=== PATIENT | male | born 1940 | race Caucasian/White ===

== ENCOUNTER → 2019-02-10 10:45 | Outpatient (CLI) | payer MEDICARE, OTHER, SELFPAY ==
--- NOTE | 2019-02-10 10:50 | AAAS_ITS ---
Reason For Study: AAA screening Aorta Measurements Aorta Doppler Measurements Proximal aorta measures1.7 x 1.6cm. in cross- Peak systolic flow velocities within the proximal sectional axis. aorta measure 93.0 cm/sec. Proximal aorta measures1.6cm. in longitudinal Peak systolic flow velocities within the mid aorta axis. measure 91.1 cm/sec. Mid aorta measures1.7 x 1.6cm. in cross-sectional Peak systolic flow velocities within the distal axis. aorta measure 74.7 cm/sec. Mid aorta measures1.5cm. in longitudinal axis. Distal aorta measures1.5 x 1.4cm. in cross- sectional axis. Distal aorta measures1.5cm. in longitudinal axis. Left Iliac Artery Left iliac artery measures .98 cm. in the longitudinal axis. Left iliac artery measures .93 x .97 cm. in the cross-sectional axis. Peak systolic velocity in the left iliac artery measures 107.6 cm/sec. Right Iliac Artery Right iliac artery measures .98 cm. in the longitudinal axis. Right iliac artery measures .86 x .85 cm. in the cross-sectional axis. Peak systolic velocity in the right iliac artery measures 184.2 cm/sec. Procedure Aorta IVC Iliac vasculature or bypass grafts [id number]. Exam performed in department. Interpretation Summary The dimensions of the intra-abdominal aorta is normal, without evidence of aneurysmal dilatation. The iliac arteries are also normal in size bilaterally. The intra-abdominal aorta and iliac arteries are patent, demonstrating normal, pulsatile arterial flow and normal peak systolic velocities. Ordering Physician: Cal Cote Referring Physician: Cal Cote BATH MIX OPERATOR-C Performed By: Rere Tripp RVT
== END ==
PROVIDERS: Referring Provider Nurse Practitioner Family; Visit Provider Nurse Practitioner Family
DX: Z13.6 Encounter for screening for cardiovascular disorders (principal)
CPT/HCPCS: 76706

== ENCOUNTER → 2019-02-21 10:39 | Outpatient (CLI) | payer MEDICARE, OTHER, SELFPAY ==
--- NOTE | 2019-02-21 10:47 | RAD_ITS ---
STUDY: X-RAY - ABDOMEN/PELVIS REASON FOR EXAM: Male, 78 years old. Abdominal pain, fullness TECHNIQUE: AP supine and upright views of the abdomen and pelvis. COMPARISON: None. FINDINGS: Normal visualized lung bases. There is an unremarkable bowel gas pattern. There is no demonstrated free abdominal air. The visualized liver, spleen and kidneys are grossly normal in size and morphology. There are vascular calcifications within the pelvis. There are diffuse degenerative changes of the visualized lumbar spine. RAD/Abd Inc Decub and/or Erect IMPRESSION: No acute findings Electronically Signed: Sameer Parker MD at 11:18 EDT , Service support ,
== END ==
PROVIDERS: Referring Provider Nurse Practitioner Family; Visit Provider Nurse Practitioner Family
DX: R10.84 Generalized abdominal pain (principal)
CPT/HCPCS: 74019

== ENCOUNTER 2021-11-15 05:24 | Day surgery (SDC) | payer MEDICARE, OTHER, SELFPAY ==
--- NOTE | 2021-11-15 05:42 | HP.PCM_ITS ---
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 Is patient in pain?: No Allergies tetanus and diphtheria toxoids Allergy (Mild, Verified 11/04/21 08:54) Other Medications aspirin 81 mg tablet,delayed release 81 mg PO DAILY 11/04/21 [History Confirmed 11/04/21] clopidogrel 75 mg tablet 75 mg PO DAILY 11/04/21 [History Confirmed 11/04/21] cod liver oil 1 cap PO DAILY 11/04/21 [History Confirmed 11/04/21] flaxseed oil 1,000 mg capsule 1,000 mg PO DAILY 11/04/21 [History Confirmed 11/04/21] isosorbide mononitrate 30 mg tablet,extended release 24 hr tablet PO 11/04/21 [History Confirmed 11/04/21] meloxicam 15 mg tablet tablet PO 11/04/21 [History Confirmed 11/04/21] metoprolol tartrate 50 mg-hydrochlorothiazide 25 mg tablet tablet PO 11/04/21 [History Confirmed 11/04/21] omeprazole 40 mg capsule,delayed release cap PO 11/04/21 [History Confirmed 11/04/21] simvastatin 40 mg tablet tablet PO 11/04/21 [History Confirmed 11/04/21] turmeric 400 mg capsule mg PO 11/04/21 [History Confirmed 11/04/21] PFSH Medical History GERD (gastroesophageal reflux disease) Heart disease HTN (hypertension) Surgical History S/P cataract extraction 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 The patient is being referred by Cal Cote CNP and a written copy of my surgical consult recommendations will be returned.. The patient had Covid-19 last year. Now he complains of a mucus type phlegm that keeps recurring. He claims he is, chronic loss of taste. He feels like there is something there the back of his throat. He claims that sometimes he has some nonspecific epigastric bloating. He has cardiac disease and is on clopidogrel. He has had bilateral knee replacement procedures and has still some difficulty moving around. He has not had any testing of this phenomena globus sensation. He claims that 5 years ago he had some abdominal bloating that seemingly resolved after couple weeks. This current phlegm-like sensation is not resolving Getting a consistent understandable history though is somewhat challenging ROS General General: No weight change, appetite, fatigue, colon cancer, breast cancer or weakness HEENT HEENT: Yes difficulty swallowing, eye injury and eye surgery; No swollen glands or hoarseness Endo Endocrine: No thyroid disease, diabetes mellitus, thyroid cancer, Hair loss, he at intolerance or cold intolerance Skin Skin: No rash or changing moles Breast Breast: No left breast lump, right breast lump, nipple discharge, breast pain, abnormal mammogram, abnormal US or breast enlargement Musc Musculoskeletal: Yes back problems and arthritis; No rheumatoid arthritis, gout or joint pain Cardio Cardiovascular: Yes heart disease and heart attack; No murmur, pacemaker, atrial fibrillation, high blood pressure, heart stent, palpitations, shortness of breat with exertion or chest pain Psych Psychiatric: No depression, anxiety or hearing voices Resp Respiratory: No shortness of breath, No sleep apnea, Yes cough, No COPD, No asthma, No emphysema and No wheezing Gastro Gastrointestinal: No abdominal pain, No nausea or vomiting, No diarrhea, No constipation, No blood in stool, Yes acid reflux, No hemorrhoids, No ulcers, No gallbladder problem and No black,tarry stools Gustavo Hematologic: Yes blood thinners, No blood disorders, No bleeding, No anemia and No blood clots Neuro Neurologic: No system reviewed and no additional complaints, except as documented, No as per HPI, No abnormal gait, No abnormal hearing, No abnormal movements, No abnormal speech, No behavioral changes, No burning sensations, No confusion, No convulsions, No disequilibrium, No dizziness, No localized weakness, No frequent falls, No headache(s), No lack of coordination, No loss of vision, No memory loss, No numbness, No other visual disturbances, No radicular pain, No restless legs, No sensory deficit, No syncope, No tingling, No tremor(s), No weakness and No other Exam Const General: cooperative and comfortable HENMT Head: normal to inspection Other: Neck is supple, nontender, I do not detect any thyroid enlargement, no cervical adenopathy, carotids are 3+ no bruits Eyes General: appearance normal, both eyes and all related structures Chest Chest palpation & inspection: normal inspection of the chest Resp Effort & Inspection: normal respiratory effort Auscultation: clear to auscultation bilaterally Cardio Rate: regular rate Rhythm: regular rhythm GI Palpation: soft and no hepatosplenomegaly Musc Other: Neck is somewhat stiff lack of mobility Neuro General: patient alert, patient awake and patient oriented x3 Assessment and Plan Assessment and Plan (1) Globus sensation: Status: Acute Plan - Dr. Nickolas Holden MD: I recommended the patient a esophagogastroduodenoscopy with possible biopsy. Careful inspection for possible reflux or H. pylori or eosinophilic esophagitis will be pursued. The patient will be able to remain on his medication. This will include his clopidogrel. I will utilize monitored anesthesia care. I have instructed the patient that I might be able to detect gastroesophageal reflux disease is etiologic to his symptoms. If absolutely no findings then he might need to follow-up with ear nose and throat. Clinically I am not detecting any thyroid problem and that would not typically correlate with mucous. He has had an opportunity to ask the questions answered. He would like to schedule and proceed as noted. I appreciate the opportunity of assisting with the surgical care. Copy: Dr. Rafa Yoo and Cal Cote, SHAUNA Holden M.D., F.A.C.S. I have re-examined the patient. There are no clinical changes since date of exam.
[2021-11-15 05:47] VITALS: BP 169/72; PULSE 62; RESP 18; TEMP 36.9; O2SAT 100; BMI 27.8
[2021-11-15] MEDS: Lactated Ringers 1,000 ML 15 ML IV (05:57)
--- NOTE | 2021-11-15 06:30 | EGD_PTH ---
PATIENT: YADIRA DURBIN LOC: EN U#:[id number] AGE/SX: 81/M ROOM: RE11/15/[address]: Dr. Nickolas Holden MD : 1940 BED: DIS: 11/15/2021 SPEC #: [id number] RECD: 11/15/21 11:14 STATUS: VAL MADRID #: [id number] POPEYE: 11/15/21 06:[address]: Nickolas Holden DEPT: SURGICAL PATHOLOGY RECD BY: Carolina Bennett ENTERED: 11/15/21 12:46 SP TYPE: EGD BIOPSY OT DR: Dr. Rafa Yoo MD Tissues: A - Gastric mucous membrane B - Stomach, NOS C - Esophagus, NOS D - Esophagus, NOS Procedures: Special Stain Group II Surgery Specimen Level IV Alcian Blue/PAS (control) HEADER OPERATION[place] [place] DIAGNOSIS: Globus sensation TISSUE SUBMITTED: A ? Antrum biopsy for histo and H. pylori, B ? Greater curvature polyp biopsy, C ? Distal esophagus biopsy, D ? Mid esophagus biopsy MICROSCOPIC DIAGNOSIS A. Antrum, biopsy: Mild gastritis. See microscopic description and comment. B. Greater curvature polyp, biopsy: Fundic gland polyp. C. Distal esophagus, biopsy: Fragments of gastroesophageal mucosa with mild chronic inflammation. Intestinal metaplasia (goblet cell metaplasia) not identified. See comment. D. Mid esophagus, biopsy: A fragment of squamous epithelium, no pathologic diagnosis. SJ:amanuel 11/16/2021 COMMENT A. The results of immunohistochemistry for Helicobacter pylori will be reported separately ([id number]). C. Alcian blue/PAS stain with matched control is used in the evaluation of the specimen. MICROSCOPIC DESCRIPTION Slides are reviewed. A. The specimen shows fragments of gastric mucosa with chronic inflammatory cell infiltrates in the lamina propria consisting of lymphocytes and plasma cells, consistent with mild chronic gastritis. Focal mucosal congestion and hemorrhage are also noted. GROSS DESCRIPTION A - Received in fixative is one container labeled with the patient's name and designated antrum biopsy. The specimen consists of one irregular fragment of light daigle soft tissue that measures 0.3 x 0.3 x 0.1 cm. The specimen is totally submitted in one cassette. B - Received in fixative is one container labeled with the patient's name and designated greater curvature polyp. The specimen consists of one irregular fragment of light daigle soft tissue that measures 0.3 x .3 x 0.1 cm. The specimen is totally submitted in one cassette. C - Received in fixative is one container labeled with the patient's name and designated distal esophagus biopsy. The specimen consists of multiple irregular fragments of light daigle soft tissue that in aggregate measure 1 x 0.5 x 0.1 cm. The specimen is totally submitted in one cassette. D - Received in fixative is one container labeled with the patient's name and designated mid esophagus biopsy. The specimen consists of one irregular fragment of light daigle soft tissue that measures 0.4 x 0.2 x 0.1 cm. The specimen is totally submitted in one cassette. / SJ:rg 11/15/2021 TC:3 CPT: 03980 x4, 73843
--- NOTE | 2021-11-15 06:30 | IMM_PTH ---
PATIENT: YADIRA DURBIN LOC: EN U#:[id number] AGE/SX: 81/M ROOM: RE11/15/[address]: Dr. Nickolas Holden MD : 1940 BED: DIS: 11/15/2021 SPEC #: [id number] RECD: 11/15/21 12:55 STATUS: VAL REQ #: [id number] POPEYE: 11/15/21 06:[address]: Nickolas Holden DEPT: IMMUNOHISTOCHEMISTRY RECD BY: Rose Mary Camara ENTERED: 11/15/21 12:56 SP TYPE: IMMUNO OTHR DR: Dr. Rafa Yoo MD Tissues: A - Stomach, NOS Procedures: H Pylori (initial) PHYSICIAN & INSTITUTION [place] [address] SPECIMEN INFORMATION: Tissue Source: A ? Antrum biopsy Clinical Info: Globus sensation Specimen Number: [id number] CPT code: 47640 METHODOLOGY: Deparaffinized sections of prefer/formalin-fixed tissue or PAP/DQ stained slides are incubated with monoclonal/polyclonal antibodies/oligonucleotide probes. Localization is made via biotin free immunoperoxidase method. Appropriate controls are performed and reacted as expected. Results on target cell population are indicated in the following table: RESULTS: ANTIBODY / CLONE RESULT Block A H Pylori (polyclonal) negative These tests were developed and their performance characteristics determined by [facility]. They may not have been cleared or approved by the U.S. Food and Drug Administration. The FDA has determined that such clearance or approval is not necessary. INTERPRETATION: A. Antrum biopsy: Negative for Helicobacter pylori organisms. SJ:amanuel 11/16/2021
[2021-11-15 06:45] VITALS: BP 118/56; BP 169/72; PULSE 54; RESP 18; TEMP 36.5; O2SAT 94
[2021-11-15 06:50] VITALS: BP 119/68; BP 169/72; PULSE 54; RESP 18; O2SAT 93
--- NOTE | 2021-11-15 06:50 | OP.EGD_ITS ---
Patient Name: Markos Miller Procedure Date: 11/15/2021 6:15 AM Date of : 1940 Age: 81 Procedure: Upper GI endoscopy Indications: Globus sensation Providers: Nickolas Holden MD Medicines: See the Anesthesia note for documentation of the administered medications Complications: No immediate complications. Procedure: Pre-Anesthesia Assessment: - Prior to the procedure, a History and Physical was performed, and patient medications and allergies were reviewed. The patient's tolerance of previous anesthesia was also reviewed. The risks and benefits of the procedure and the sedation options and risks were discussed with the patient. All questions were answered, and informed consent was obtained. Prior Anticoagulants: The patient has taken no previous anticoagulant or antiplatelet agents. ASA Grade Assessment: II - A patient with mild systemic disease. After reviewing the risks and benefits, the patient was deemed in satisfactory condition to undergo the procedure. After obtaining informed consent, the endoscope was passed under direct vision. Throughout the procedure, the patient's blood pressure, pulse, and oxygen saturations were monitored continuously. The Endoscope was introduced through the mouth, and advanced to the second part of duodenum. The upper GI endoscopy was accomplished without difficulty. The patient tolerated the procedure well. Scope In: 6:34:11 AM Scope Out: 6:41:04 AM Total Procedure Duration Time 0 hours 6 minutes 53 seconds Findings: Esophagitis with no bleeding was found 40 cm from the incisors. Biopsies were taken with a cold forceps for histology. A 1 cm hiatal hernia was present. The middle third of the esophagus was normal. Biopsies were taken with a cold forceps for histology. Localized moderate inflammation characterized by erythema was found in the gastric antrum. Biopsies were taken with a cold forceps for histology. Multiple sessile polyps with no bleeding and no stigmata of recent bleeding were found on the greater curvature of the stomach. The polyp was removed with a cold biopsy forceps. Resection and retrieval were complete. The examined duodenum was normal. Impression: - Reflux esophagitis. Biopsied. - 1 cm hiatal hernia. - Normal middle third of esophagus. Biopsied. - Acute gastritis. Biopsied. - Multiple gastric polyps. Resected and retrieved. - Normal examined duodenum. Recommendation: - Await pathology results. - Use sucralfate tablets 1 gram PO QID. Please contact my office in 1-2 weeks with progress report regarding Globus sensation Consider thyroid Ultrasound if symptoms persist - Continue present medications. Procedure Code(s): --- Professional --- 17565, Esophagogastroduodenoscopy, flexible, transoral; with biopsy, single or multiple Diagnosis Code(s): --- Professional --- K21.0, Gastro-esophageal reflux disease with esophagitis K44.9, Diaphragmatic hernia without obstruction or gangrene K29.00, Acute gastritis without bleeding K31.7, Polyp of stomach and duodenum F45.8, Other somatoform disorders CPT copyright 2017 [employer]. All rights reserved. The codes documented in this report are preliminary and upon clinical education coordinator review may be revised to meet current compliance requirements. Nickolas Holden MD 11/15/2021 6:49:31 AM This report has been signed electronically. Number of Addenda: 0 Note Initiated On: 11/15/2021 6:15 AM
--- NOTE | 2021-11-15 06:50 | OP.CCLET_ITS ---
11/15/2021 Rafa Yoo Re : Upper GI endoscopy procedure for Markos Miller Dear Fredo This procedure was performed on Monday, November 15, 2021. My impressions and recommendations are as follows: Impressions : - Reflux esophagitis. Biopsied. - 1 cm hiatal hernia. - Normal middle third of esophagus. Biopsied. - Acute gastritis. Biopsied. - Multiple gastric polyps. Resected and retrieved. - Normal examined duodenum. Recommendations : - Await pathology results. - Use sucralfate tablets 1 gram PO QID. Please contact my office in 1-2 weeks with progress report regarding Globus sensation Consider thyroid Ultrasound if symptoms persist - Continue present medications. My findings are described in the full procedure note, which is enclosed. If I can be of further assistance, please feel free to contact me at Doctor phone number(s): Work: . Sincerely, Nickolas Holden MD 11/15/2021 6:49:31 AM This report has been signed electronically.
[2021-11-15 06:55] VITALS: BP 120/70; BP 169/72; PULSE 58; RESP 18; O2SAT 95
[2021-11-15 07:00] VITALS: BP 126/68; BP 169/72; PULSE 65; RESP 18; TEMP 36.9; O2SAT 95
[2021-11-15 07:07] VITALS: BP 169/72
== END 2021-11-15 23:59 | disposition home or self-care (01) ==
LOC: EN 05:25 → AC 05:26
PROVIDERS: PCP Family Medicine; Referring Provider Family Medicine; Visit Provider Surgery
PROC: 0DJ08ZZ Inspection of Upper Intestinal Tract, Via Natural or Artificial Opening Endoscopic (ICD-10-PCS; CPT 43235; principal; 2021-11-15 06:25)
DX: K29.70 Gastritis, unspecified, without bleeding (principal); K44.9 Diaphragmatic hernia without obstruction or gangrene; I10 Essential (primary) hypertension; K31.7 Polyp of stomach and duodenum; Z87.891 Personal history of nicotine dependence; K21.00 Gastro-esophageal reflux disease with esophagitis, without bleeding; Z79.899 Other long term (current) drug therapy; Z79.82 Long term (current) use of aspirin; M19.90 Unspecified osteoarthritis, unspecified site; Z86.718 Personal history of other venous thrombosis and embolism; E78.00 Pure hypercholesterolemia, unspecified; Z79.02 Long term (current) use of antithrombotics/antiplatelets; Z95.1 Presence of aortocoronary bypass graft
CPT/HCPCS: 43239; 88305; 88313; 88342; J7120; J2405

== ENCOUNTER → 2022-12-11 | Outpatient (CLI) | payer MEDICARE, OTHER, SELFPAY ==
--- NOTE | 2022-12-11 16:51 | NEURO_ITS ---
NCS and/or EMG Patient Report Ordering Doctor: Jah Rousseau DATE OF SERVICE: 12/11/22 Indication: Bilateral hand pain, numbness and tingling (right greater than left). Evaluate for entrapment neuropathy. Findings: Nerve conduction studies were performed in the right and left upper extremities. The right median motor study recording the abductor pollicis brevis showed a normal amplitude, prolonged distal latency and slowed conduction velocity. The right ulnar motor study recording the abductor digiti minimi showed a normal amplitude, normal distal latency and normal conduction velocity. No conduction block or focal slowing was present across the elbow. The right median sensory response was absent. The right ulnar sensory response recording digit five showed a normal amplitude, latency and conduction velocity. The right radial sensory response recording over the extensor snuff box showed a normal amplitude, latency and conduction velocity. The left median motor study recording the abductor pollicis brevis showed a normal amplitude, markedly prolonged distal latency and slowed conduction juani ocity. The left ulnar motor study recording the abductor digiti minimi showed a normal amplitude, normal distal latency and normal conduction velocity. No conduction block or focal slowing was present across the elbow. The left median sensory response recording digit two was absent. The left ulnar sensory response recording digit five showed a normal amplitude, latency and conduction velocity. The left radial sensory response recording over the extensor snuff box showed a normal amplitude, latency and conduction velocity. Right median-ulnar lumbrical / interosseous motor latencies showed a prolonged median latency compared to the ulnar. Left median-ulnar lumbrical / interosseous motor latencies showed a prolonged median latency compared to the ulnar. Needle EMG was omitted due to the lack of radicular symptoms and the confirmatory nature of the nerve conduction studies. Impression: This is a markedly abnormal study. 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 The pathophysiology is severe demyelination though there is evidence of significant secondary sensory axon loss. These findings are compatible with the clinical diagnosis of carpal tunnel syndrome. Blair Garcia D.O. Multi Select Codes Neurology Neurology Interp Codes: 01377-25 [facility] test studies (interp)
== END | disposition home or self-care (01) ==
LOC: PSN 15:08
PROVIDERS: PCP Family Medicine; Referring Provider Student in an Organized Health Care Education/Training Program; Visit Provider Student in an Organized Health Care Education/Training Program
DX: M81.0 Age-related osteoporosis without current pathological fracture (principal); R20.2 Paresthesia of skin; G56.03 Carpal tunnel syndrome, bilateral upper limbs
CPT/HCPCS: 95913

== ENCOUNTER 2024-05-18 10:37 | Emergency (ER) | payer MEDICARE, OTHER, SELFPAY ==
[2024-05-18 10:38] VITALS: BP 163/87; PULSE 61; PULSE 64; RESP 16; TEMP 36.5; O2SAT 96; O2SAT 97
[2024-05-18 10:43] VITALS: BMI 26.4
[2024-05-18 10:44] VITALS: TEMP 36.5
--- NOTE | 2024-05-18 11:12 | CT_ITS ---
STUDY: CT FACIAL BONES WITHOUT CONTRAST REASON FOR EXAM: Male, 83 years old. Facial trauma RADIATION DOSAGE (If Supplied By Facility): CTDIvol = ( 29.38 ) mGy, DLP = ( 562.15 ) mGycm TECHNIQUE: The patient was scanned in a multi detector CT scanner. Sagittal and coronal images were reconstructed. Individualized dose optimization techniques were used for this CT. COMPARISON: None. FINDINGS: There is frontal soft tissue swelling. 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 There are multiple fractures. There are fractures of the anterior and posterior leonard of the frontal sinus. There are fractures of the nasal bone . There are fractures of the anterior and posterior leonard of the bilateral maxillary sinuses. There are fractures of the bilateral pterygoid processes. There is fracture of the left zygoma . There are fractures of the lateral wall of the bilateral orbits . Normal mandible. Mucosal thickening and fluid in the frontal, maxillary, and ethmoid visualized paranasal sinuses. CT/Sinus/Facial Bone IMPRESSION: LeFort type III fractures. Fractures involving the anterior and posterior leonard of the frontal sinus. Electronically Signed: Pal Cronin MD at 12:29 EDT ,
--- NOTE | 2024-05-18 11:12 | CT_ITS ---
STUDY: CT BRAIN WITHOUT CONTRAST REASON FOR EXAM: Male, 83 years old. Trauma RADIATION DOSAGE (If Supplied By Facility): CTDIvol = ( 44.99 ) mGy, DLP = ( 779.24 ) mGycm TECHNIQUE: Transaxial CT imaging of the brain was performed without administration of intravenous contrast material. Individualized dose optimization techniques were used for this CT. COMPARISON: No relevant priors. FINDINGS: There is frontal and facial soft tissue swelling. There are fractures of the facial bones including the anterior and posterior leonard of the frontal sinus. Normal calvarium. There is mild cerebral atrophy with widening of the extra-axial spaces and ventricular dilatation. There are areas of decreased attenuation within the white matter tracts of the supratentorial brain, consistent with microvascular disease changes. Normal basal ganglia and thalami. Normal brainstem. Normal cerebellum. There is no intracranial hemorrhage. There are no findings of an acute ischemic infarction. There is mucosal thickening and fluid in the visualized paranasal sinuses. CT/Brain/Head without Contrast IMPRESSION: Chronic involutional changes of the brain. Facial fractures including involving the anterior and posterior leonard of the frontal sinus. No intracranial hemorrhage seen. Electronically Signed: Pal Cronin MD at 12:34 EDT ,
--- NOTE | 2024-05-18 11:13 | EDS_ITS ---
HPI HPI - Fall History of Present Illness Chief Complaint: Fall Informant: patient, spouse/S.O. and family Occured/Mechanism Occurred: Today Mechanism/Context: Yes same level fall and Yes trip Usually ambulates: Without assistance Pain/Injury Pain Location: head and face Current Severity: Moderate Maximum Severity: Moderate Associated Symptoms Associated Symptoms: Negative for Parasthesias, Weakness, Loss of function, Inability to ambulate, Loss of consciousness or Amnesia Narrative Narrative: 83-year-old male history of DVT, hypertension and cardiac disease with prior bypass years ago. He is on both aspirin and Plavix. Was at a neighbor's house and he was stepping around a lakshmi when he caught his foot on tripped and fell landing on the driveway primarily on his face. Injuring his nose and causing a bilateral nosebleed. He also has abrasions on both knees. Does not believe he was knocked out. He does have a headache. Prior similar symptoms: No Recent Illness/Hospitalization: No PFSH PFS Medical History Wears hearing aid Wears glasses Alcohol use Arthritis DVT (deep venous thrombosis) High cholesterol Easy bruising Former smoker Shortness of breath on exertion History of stress test Cardiology follow-up encounter GERD (gastroesophageal reflux disease) HTN (hypertension) Heart disease Home Medications ?Medication ?Instructions ?Recorded ?Last Taken ?Type aspirin 81 mg tablet,delayed 81 mg PO DAILY 11/04/21 Unknown History release clopidogrel 75 mg tablet (Plavix) 75 mg PO DAILY 11/04/21 Unknown History cod liver oil 1 cap PO DAILY 11/04/21 Unknown History flaxseed oil 1,000 mg capsule 1,000 mg PO DAILY 11/04/21 Unknown History isosorbide mononitrate 30 mg 30 mg PO DAILY 11/04/21 Unknown History tablet,extended release 24 hr meloxicam 15 mg tablet 15 mg PO DAILY 11/04/21 Unknown History metoprolol tartrate 50 1 tablet PO DAILY 11/04/21 Unknown History mg-hydrochlorothiazide 25 mg tablet omeprazole 40 mg capsule,delayed 40 mg PO DAILY 11/04/21 Unknown History release simvastatin 40 mg tablet 40 mg PO DAILY 11/04/21 Unknown History turmeric 400 mg capsule 400 mg PO DAILY 11/04/21 Unknown History sucralfate 1 gram tablet (Carafate) 1 g PO Q6H #120 tabs 11/15/21 Unknown Rx amoxicillin 500 mg capsule 500 mg PO BID 7 days #14 caps 05/18/24 Unknown Rx ondansetron 4 mg disintegrating 4 mg PO Q6H PRN nausea and 05/18/24 Unknown Rx tablet vomiting #10 tabs Allergy/AdvReac Type Severity Reaction Status Date / Time tetanus and diphtheria Allergy Mild Other Verified 05/18/24 10:48 toxoids Family History Father Heart disease Surgical History History of cardiac catheterization History of quadruple bypass S/P cataract extraction Status post right knee replacement Status post left knee replacement Social History Smoking Status: Former smoker alcohol intake: current alcohol intake frequency: 0-2 drinks per day ROS ROS ED ROS Narrative Denies recent illness. Review of Systems ROS Unobtainable: Denies due to encephalopathy Constitutional Constitutional ED: Denies chills or fever(s) Eyes Eyes: Denies blurry vision ENT ENT ED: Denies ear pain Cardiovascular Cardiovascular: Denies chest pain Respiratory/Chest Respiratory/Chest: Denies cough or dyspnea Gastrointestinal Gastrointestinal: Denies abdominal pain Genitourinary Genitourinary ED: Denies dysuria or hematuria Musculoskeletal Musculoskeletal: Denies arthralgias Integumentary Denies abscess Neurologic Neurologic: Denies headache(s) Psychiatric Psychiatric: Denies anxiety or depression Endocrine Endocrinology: Denies polydipsia Hematologic/Lymphatic Hematologic/Lymphatic: Denies easy bruising or lymphadenopathy Allergic/Immunologic Allergic/Immunologic ED: Denies mouth swelling, tongue swelling or urticaria EXAM Physical Exam Narrative Exam Narrative: 83-year-old male vital signs stable afebrile. H EENT exam pupils round reactive light. Extra motions are intact. He has a contusion to his nose. Bleeding from both naris and clot. He is Bruising along his right eye and medial orbit area. Extraocular motions are intact. Dentition is intact. No dental injury or jaw injury. He is able to open close his mouth and difficulty. Scalp is nontender without laceration or contusion. C-spine nontender. Trachea midline. Lungs clear to auscultation bilaterally. Heart regular rhythm rate about 65 no murmur. Chest wall and ribs nontender. Abdomen soft nontender. Pelvic girdle intact. Moving all 4 extremities. Nontender no deformity. Normal range of motion. 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 Dorsi plantarflexion intact. Flexiseq to both knees and hips without any difficulty. Minor abrasions bilateral knees. Nothing that needs to be sewn. Back nontender. Neurologically is hard of hearing but is awake alert. He is answering questions following commands. GCS of 15. Const Vital Signs: 05/18/24 10:38 05/18/24 10:38 05/18/24 10:44 Temperature 97.7 F L 97.7 F L Temperature Source Temporal Pulse Rate 64 61 Respiratory Rate 16 16 Respiratory Effort Normal Respiratory Depth Normal Respiratory Pattern Normal Blood Pressure 163/87 H 163/87 H Blood Pressure Mean 112 112 Pulse Ox 97 96 Oxygen Delivery Method Room Air Room Air Room Air 05/18/24 12:37 Temperature Temperature Source Pulse Rate 45 L Respiratory Rate 16 Respiratory Effort Respiratory Depth Respiratory Pattern Blood Pressure 96/65 Blood Pressure Mean 75 Pulse Ox 97 Oxygen Delivery Method Room Air Positive well nourished and well developed; Negative for obese, cachectic, contractures or unkempt General Appearance ED: well developed and NAD; Negative for unkempt, cachectic or contractures Nutritional Appearance: Negative for cachectic or obese HEENT Reports normocephalic HEENT Narrative: Facial bruising and clots. Contusion to his forehead. trauma, contusion and hematoma; Negative for atraumatic or tenderness Eyes PERRL and EOMs intact bilaterally General Eye ED: Negative for pale conjunctiva or scleral icterus Neck full ROM, no lymphadenopathy and supple General: Negative for tenderness or other Chest Wall inspection of chest normal and palpation of chest normal Chest: Negative for other Resp normal respiratory effort, no retractions and clear to auscultation bilaterally Effort and Inspection: Negative for pain with movement Auscultation: Negative for rales, rhonchi, wheezes or diminished lung sounds Cardio regular rate, regular rhythm, S1 normal heart sound, S2 normal heart sound and no murmurs Rate: Negative for bradycardia or tachycardic Rhythm: Negative for abnormal rhythm Bruits: Negative for other GI non-tender, non-distended and no masses Inspection: Negative for abdominal distention Auscultation: normoactive bowel sounds Palpation: soft; Negative for guarding or rebound tenderness present Back/Spine no CVA tenderness General Back: Negative for CVA tenderness, erythema, ecchymosis or swelling Cervical Spine: Negative for cervical spine tenderness Neuro oriented x3, CN's II-XII intact bilaterally, moves all extremities and no focal motor deficits Sensorium / Orientation: alert, oriented to person, oriented to place and oriented to time; Negative for orientation impaired, confused, lethargic or stuporous Motor Exam: strength 5/5 throughout; Negative for general weakness or strength abnormal Psych mental status grossly normal and thought process normal Appearance: Negative for unkempt Attitude: No agitated Mood & Affect: Negative for depressed, anxious or tearful Skin Lesions: no lesions Rashes: no rashes MDM MDM MDM Narrative Medical decision making narrative: 83-year-old male on Plavix and aspirin fell most likely has a nasal fracture contusion. It is not being on Plavix and aspirin and has a head injury we will get a CT of his head and facial bones. Will be cleaned up. Tylenol for pain. Repeat exam patient doing well at noon. I did place Sudhakar-Synephrine soaked gauze in both naris to help stop the bleeding. He has no new complaints. His face was cleaned off and there is no lacerations that need to be repaired. We are awaiting the CAT scan results. Repeat exam patient is doing well at 12:57 PM. Nosebleed is resolved. Cottonball soaked with Afrin were removed. There is no acute bleeding currently. I did go over the CAT scan reports with the patient and his family. I have ENT on page for close follow-up. Due to the facial fractures. Patient be discharged home. On amoxicillin twice a day for a week. Zofran as needed for nausea. And outpatient follow-up with ENT. History & Record Review Discussion w/independent historian: Patient and Family Additional record(s) reviewed:: Prior inpatient record, Prior outpatient record, Prior ED visit and Prior labs Radiography Diagnostic Testing: Clinical Impression(s) from Imaging Studies Brain CT 05/18/24 11:12 IMPRESSION: Chronic involutional changes of the brain. Facial fractures including involving the anterior and posterior leonard of the frontal sinus. No intracranial hemorrhage seen. Electronically Signed: Pal Cronin MD at 12:34 EDT , Facial/Sinus 05/18/24 11:12 IMPRESSION: LeFort type III fractures. Fractures involving the anterior and posterior leonard of the frontal sinus. Electronically Signed: Pal Cronin MD at 12:29 EDT , Discharge Plan Triage Chief Complaint: Fall ED Provider: Dale He Dx/Rx/DC Orders Clinical Impression: Fall, Extensive facial fractures, History of deep vein thrombosis, Hx of CABG Instructions: ED Facial Fracture, ED Head Injury (Adult) Prescriptions: New ondansetron 4 mg tablet,disintegrating 4 mg PO Q6H PRN (Reason: nausea and vomiting) Qty: 10 0RF amoxicillin 500 mg capsule 500 mg PO BID 7 Days Qty: 14 0RF No Action omeprazole 40 mg capsule,delayed release(DR/EC) 40 mg PO DAILY isosorbide mononitrate 30 mg tablet extended release 24 hr 30 mg PO DAILY metoprolol ta-hydrochlorothiaz 50-25 mg tablet 1 tablet PO DAILY simvastatin 40 mg tablet 40 mg PO DAILY meloxicam 15 mg tablet 15 mg PO DAILY clopidogrel [Plavix] 75 mg tablet 75 mg PO DAILY aspirin 81 mg tablet,delayed release (DR/EC) 81 mg PO DAILY cod liver oil Capsule 1 cap PO DAILY flaxseed oil 1,000 mg capsule 1,000 mg PO DAILY Rx Instructions: administer with a meal turmeric 400 mg capsule 400 mg PO DAILY sucralfate [Carafate] 1 gram tablet 1 g PO Q6H Qty: 120 1RF Primary Care Provider: Phyllis Simpson Referrals: Blair Pineda MD [Med Staff - Active Staff] - As soon as possible Phyllis Simpson, [Primary Care Provider] - Activity Restrictions/Additional Instructions: Try not to blow your nose. Tylenol for pain. Ice or cool compresses to your face to decrease pain and swelling. Amoxicillin twice a day to prevent infection due to the facial fractures. Zofran as needed for nausea which you may swallow or let dissolve under your tongue. Call Dr. Jose Mendez's office tomorrow to be seen as soon as possible. I will give him a heads up today. Hold your Plavix and aspirin today and tomorrow. You can restart it on Sunday. Print Language: Mongolian Disposition Disposition: Home, Self Care
[2024-05-18] MEDS: Acetaminophen 500 MG Tablet 1000 MG PO (11:17)
[2024-05-18] MEDS: Oxymetazoline 0.05% 1 SPRAY SPRAY.BTL 2 SPRAY NASAL (11:55)
[2024-05-18 12:37] VITALS: BP 96/65; PULSE 45; RESP 16; O2SAT 97
[2024-05-18] MEDS: Ondansetron ODT 4 MG Tablet PO (13:20)
[2024-05-18 13:25] VITALS: BP 151/76; PULSE 64; RESP 18; TEMP 36.4; O2SAT 99
== END 2024-05-18 13:26 | disposition home or self-care (01) ==
PROVIDERS: Emergency Provider Emergency Medicine; PCP Internal Medicine; Visit Provider Emergency Medicine
DX: S02.92XA Unspecified fracture of facial bones, initial encounter for closed fracture (principal); E78.00 Pure hypercholesterolemia, unspecified; K21.9 Gastro-esophageal reflux disease without esophagitis; I10 Essential (primary) hypertension; Z79.01 Long term (current) use of anticoagulants; Z79.899 Other long term (current) drug therapy; Z86.718 Personal history of other venous thrombosis and embolism; Z95.1 Presence of aortocoronary bypass graft; Z79.82 Long term (current) use of aspirin; W18.30XA Fall on same level, unspecified, initial encounter; Z87.891 Personal history of nicotine dependence
CPT/HCPCS: 70450; 70486; 99282

== ENCOUNTER → 2024-09-08 | Outpatient (CLI) | payer MEDICARE, OTHER, SELFPAY ==
--- NOTE | 2024-09-08 13:13 | CT_ITS ---
STUDY: CT FACIAL BONES WITHOUT CONTRAST REASON FOR EXAM: Male, 83 years old. SINUSITIS, FRACTURE OF NASAL BONE. History of prior LeFort type III fractures. RADIATION DOSAGE (If Supplied By Facility): CTDIvol = ( 28.14 ) mGy, DLP = ( 753.23 ) mGycm TECHNIQUE: The patient was scanned in a multi detector CT scanner. Sagittal and coronal images were reconstructed. Individualized dose optimization techniques were used for this CT. COMPARISON: Comparison is made with prior study dated May 18, 2024. FINDINGS: Normal soft tissue structures. Normal orbital leonard and orbital contents. Normal nasal bones and anterior nasal spine. Normal facial bones. There is no demonstrated fracture. Nasal septal deviation towards the left side of the midline. Normal visualized paranasal sinuses. CT/Sinus/Facial Bone IMPRESSION: No acute abnormality is seen at this time. Electronically Signed: Isidoro De MD at 15:17 EST ,
== END | disposition home or self-care (01) ==
LOC: CT 13:06
PROVIDERS: PCP Internal Medicine; Referring Provider Otolaryngology; Visit Provider Otolaryngology
DX: J32.8 Other chronic sinusitis (principal); S02.2XXA Fracture of nasal bones, initial encounter for closed fracture
CPT/HCPCS: 70486

== ENCOUNTER → 2025-01-15 | Outpatient (CLI) | payer MEDICARE, OTHER, SELFPAY | END | disposition home or self-care (01) | PROVIDERS: PCP Internal Medicine; Referring Provider Nurse Practitioner Family; Visit Provider Nurse Practitioner Family | DX: I25.118 Atherosclerotic heart disease of native coronary artery with other forms of angina pectoris (principal); I10 Essential (primary) hypertension; Z78.9 Other specified health status ==

== ENCOUNTER → 2025-01-22 | Outpatient (CLI) | payer MEDICARE, OTHER, SELFPAY ==
--- NOTE | 2025-01-22 09:45 | CDU_ITS ---
Reason For Study Reason For Study: CAD Rt. Velocities/BP Lt. Velocities/BP Prox CCA 66.4/6.9 cm/sec. Prox CCA 62.9/9.1 cm/sec. Mid CCA 62.6/6.9 cm/sec. Mid CCA 54.4/7.2 cm/sec. Dist CCA 55.1/6.0 cm/sec. Dist CCA 48.7/6.2 cm/sec. Prox ICA 95.7/15.7 cm/sec. Prox ICA 99.7/12.1 cm/sec. Mid ICA 133.3/17.3 cm/sec. Mid ICA 94.2/12.1 cm/sec. Dist ICA 44.5/7.3 cm/sec. Dist ICA 60.9/14.2 cm/sec. Rt. ICA/CCA = 2.1. Lt. ICA/CCA = 1.8. Prox ECA 99.0/2.6 cm/sec. Prox ECA 101.6/0.0 cm/sec. Rt. Vert. 30.8/5.3 cm/sec. Lt. Vert. 41.3/6.9 cm/sec. Right Extracranial There is intimal thickening but no significant atherosclerotic plaque noted in the right common carotid artery. There is heterogeneous, irregular atherosclerotic plaque noted in the right internal carotid artery. The atherosclerotic plaque causes acoustic shadowing. There is heterogeneous, irregular atherosclerotic plaque noted in the right external carotid artery. Antegrade flow is noted in the right vertebral artery. Left Extracranial There is intimal thickening but no significant atherosclerotic plaque noted in the left common carotid artery. There is heterogeneous, irregular atherosclerotic plaque noted in the left internal carotid artery. The atherosclerotic plaque causes acoustic shadowing. There is heterogeneous, irregular atherosclerotic plaque noted in the left external carotid artery. Antegrade flow is noted in the left vertebral artery. Procedure Carotid Duplex [id number]. This is a Carotid Duplex examination using B-mode, color flow and specral Doppler. Exam performed in department. VL/Carotid Duplex Ultrasound Interpretation Summary Moderate (50-69%) stenosis right extracranial internal carotid. Mild (<50%) stenosis left extracranial internal carotid. Patent and antegrade vertebrals bilaterally. Ordering Physician: Suzanne Murdock Referring Physician: Suzanne Murdock Performed By: Keisha Painting RVT
== END | disposition home or self-care (01) ==
PROVIDERS: PCP Internal Medicine; Referring Provider Nurse Practitioner Family; Visit Provider Nurse Practitioner Family
DX: R26.81 Unsteadiness on feet (principal); I25.118 Atherosclerotic heart disease of native coronary artery with other forms of angina pectoris; I10 Essential (primary) hypertension
CPT/HCPCS: 93880

== ENCOUNTER 2025-02-25 12:25 | Outpatient (CLI) | payer MEDICARE, OTHER, SELFPAY ==
--- NOTE | 2025-02-25 12:34 | CT_ITS ---
PROCEDURE: LIMITED CHEST CT CARDIAC ONLY REASON FOR EXAM: CAD TECHNIQUE: Prone and supine chest CT without contrast, high resolution CT (HRCT) protocol. Coronal and Sagittal reconstruction series were provided. One or more dose reduction techniques were used (e.g., Automated exposure control, adjustment of the mA and/or kV according to patient size, use of iterative reconstruction technique). COMPARISON: No relevant prior. FINDINGS: Non-Coronary Cardiac Findings: The myocardium, valves and pericardium have a normal appearance. Mild atherosclerotic calcific disease of the aorta Non-Cardiac Findings: Lungs: Clear. Small pneumatocele, left lower lobe. Pleural spaces: No fluid, pneumothorax or thickening. Mediastinum:The visualized mediastinum is normal with no lymphadenopathy. Pulmonary vessels: Unremarkable. Chest wall: Unremarkable. Upper abdomen and bones: Calcified hepatic and splenic granulomas. Multilevel spondylosis. Median sternotomy wires. CT/Limited Chest CT Cardiac Only IMPRESSION: UNREMARKABLE LIMITED CHEST CT NON-CORONARY AND NON-CARDIAC ANATOMY ONLY. Reading Location: [facility]
[2025-02-25 12:45] VITALS: BP 201/60; PULSE 50; RESP 18; O2SAT 98; BMI 27.7
[2025-02-25 13:27] VITALS: BP 166/65; PULSE 54
[2025-02-25] MEDS: Nitroglycerin SL (ED/IMG/CATH) 0.4 MG TABLET SL (13:27)
[2025-02-25 13:36] VITALS: BP 166/65; PULSE 54; RESP 18
== END 2025-02-25 23:59 | disposition home or self-care (01) ==
PROVIDERS: PCP Nurse Practitioner Family; Referring Provider Nurse Practitioner Family; Visit Provider Nurse Practitioner Family
DX: I25.118 Atherosclerotic heart disease of native coronary artery with other forms of angina pectoris (principal); E11.22 Type 2 diabetes mellitus with diabetic chronic kidney disease; N18.9 Chronic kidney disease, unspecified; I12.9 Hypertensive chronic kidney disease with stage 1 through stage 4 chronic kidney disease, or unspecified chronic kidney disease; Z78.9 Other specified health status
CPT/HCPCS: 75571; 75574; 76380; Q9967